=== PATIENT | male | born 1945 | race Caucasian/White ===

== ENCOUNTER → 2016-07-15 | Outpatient (CLI) | payer OTHER ==
[~2016-07-15] MED LIST: CARD2TAB PO; FLUT1INH INH; TEMA30CA PO; VENTAER INH
[2016-07-15 09:15] LABS: BLOOD GAS BASE EXCESS -2.4 mmol/L (-2-2); BLOOD GAS CARBOXYHEMOGLOBIN 1.5 % (0-4); BLOOD GAS HCO3 21 mmol/L (22-26); BLOOD GAS METHEMOGLOBIN 1.1 % (0-2); BLOOD GAS O2 HGB SATURATION 93 % (90-100); BLOOD GAS OXYGEN CONTENT 19.8 Vol % (12.0-20.0); BLOOD GAS PCO2 33 mmHg (38-42); BLOOD GAS PO2 79 mmHg (61-120); CRITICAL VALUE NO; DRAW SITE RT RADIAL; FIO2 21 %; NUMBER OF ARTERIAL PUNCTURES 1; STAT NO; TEMP CORR TO 98.6; ULNAR PULSE PRESENT
--- NOTE | 2016-07-19 10:59 | RSPPFT ---
DATE OF PROCEDURE: 07/15/16 COMMENTS: Spirometry with FVC of 3.9 predicted 4.3, FEV1 of 2.6 predicted 2.6, FEV1/FVC ratio 67% predicted 66%. IMPRESSION: On the basis of the above, patient has an obstructive lung defect with air trapping with RV at 3.1 predicted 2.5. DLCO is 75%.
== END ==
LOC: HRSP 07:43
PROVIDERS: ATTEND Internal Medicine Pulmonary Disease
DX: R06.02 Shortness of breath (principal); R05 Cough
CPT/HCPCS: 36600; 82805; 94060; 94620; 94726; 94729